=== PATIENT | male | born 1945 | race Two or more races ===

== ENCOUNTER 2019-06-22 09:11 | Outpatient (CLI) | payer MEDICARE | END 2019-06-22 23:59 | disposition home or self-care (01) | LOC: CT 09:11 | PROVIDERS: ATTEND Surgery | DX: K42.9 Umbilical hernia without obstruction or gangrene (principal); N20.0 Calculus of kidney; K40.20 Bilateral inguinal hernia, without obstruction or gangrene, not specified as recurrent; I25.10 Atherosclerotic heart disease of native coronary artery without angina pectoris; I70.0 Atherosclerosis of aorta; M47.816 Spondylosis without myelopathy or radiculopathy, lumbar region; M43.8X6 Other specified deforming dorsopathies, lumbar region ==